=== PATIENT | male | born 1955 | race Caucasian/White ===

== ENCOUNTER 2019-05-23 09:00 | Day surgery (SDC) | payer BC ==
[2019-05-15 12:25] LABS: PRE OP PROTIME 10.3 SECONDS (9.0-12.0)
[2019-05-15 12:26] LABS: BASOPHILS # (AUTO) 0.1 X10'3 (0-0.2); BASOPHILS % (AUTO) 1.4 % (0-1); EOSINOPHILS # (AUTO) 0.5 X10'3 (0-0.9); EOSINOPHILS % (AUTO) 7.5 % (0-6); LYMPHOCYTES # (AUTO) 1.5 X10'3 (1.1-4.8); LYMPHOCYTES % (AUTO) 23.4 % (21-51); MEAN CORPUSCULAR HEMOGLOBIN 29.5 PG (27.0-31.0); MEAN CORPUSCULAR HGB CONC 34.4 g/dL (33.0-36.5); MEAN CORPUSCULAR VOLUME 85.7 FL (78-98); MEAN PLATELET VOLUME 8.8 FL (7.4-10.4); MONOCYTES # (AUTO) 0.5 X10'3 (0-0.9); MONOCYTES % (AUTO) 7.6 % (2-12); NEUTROPHILS # (AUTO) 3.7 X10'3 (1.8-7.7); NEUTROPHILS % (AUTO) 60.1 % (42-75); PRE OP HEMOGLOBIN 15.5 g/dL (14.0-17.9); PRE OP PLATELET COUNT 184 X10'3 (140-440); RED BLOOD COUNT 5.25 X10'6 (4.70-6.10); RED CELL DISTRIBUTION WIDTH 13.5 % (11.5-14.5)
[2019-05-15 12:28] LABS: ALBUMIN/GLOBULIN RATIO 1.2 (1.1-1.5); ALKALINE PHOSPHATASE 78 IU/L (46-116); BLOOD UREA NITROGEN 13 MG/DL (7-18); BUN/CREATININE RATIO 18.1 (5.4-32.0); CHLORIDE 109 MMOL/L (99-107); CREATININE 0.72 MG/DL (0.60-1.10); PRE OP ALT 29 U/L (30-65); PRE OP ANION GAP 6 (8-16); PRE OP AST 9 U/L (10-37); PRE OP BILIRUB, TOTAL 0.6 MG/DL (0.0-1.0); PRE OP GLUCOSE 90 MG/DL (70-104); PRE OP SODIUM 141 MMOL/L (135-145); TOTAL CARBON DIOXIDE 26.3 MMOL/L (24-32); TOTAL PROTEIN 7.3 G/DL (6.4-8.2); eGFR > 90 ML/MIN
[~2019-05-23] VITALS: Ht 182.9 cm; Wt 103.4 kg
[~2019-05-23 09:00] MED LIST: AMLO10TA PO; FLO0.4C PO; IBUPROFEN PO; acetaminophen 325mg tablet PO ONE; cefazolin/dext.iso 2gm/100 ML IV ONE; famotidine 20mg tablet PO ONE; gabapentin 300mg capsule PO ONE; metoclopramide 5 mg/ml inj IV ONE; oxyCODONE SR 10mg (sust. release) tab -2 tabs (20mg) PO ONE; ringers solution, lacted 1,000 ML IV SCH; tranexamic acid inj. 1,000 MG in normal saline 100 ML IV ONE; vancomycin inj 1,500 MG in normal saline 300ml IV soln IV ONE
[2019-05-23] MEDS ORDERED: LIDOcaine 1% (10mg/ml) 2ml vial ONE (09:01)
[2019-05-23] MEDS ORDERED: proCHLORperazine 10 MG/2 ml inj IV PRN (10:00)
[2019-05-23] MEDS ORDERED: meperidine/PF 25mg/ml syringe IV PRN ×3 (10:00)
[2019-05-23] MEDS ORDERED: ondansetron/PF 4mg/2ml inj IV PRN (10:00)
[2019-05-23] MEDS ORDERED: morphine 4 MG/ML inj SYRINge IV PRN ×2 (10:00)
[2019-05-23] MEDS ORDERED: ringers solution, lacted 1,000 ML IV SCH (10:00)
--- NOTE | 2019-05-23 10:00 | NUR ---
PT WAS DISCHARGED TO HOME. SURGERY CANCELLED PER DR AGUILAR FOR MULTIPLE SMALL SCABS TO RIGHT KNEE WHICH IS THE OPERATIVE KNEE. PT WILL CALL OFFICE TO RESCHEDULE AND STATES UNDERSTANDING REGARDING KEEPING SKIN INTACT PRIOR TO SURGERY. 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
[2019-06-19] MEDS ORDERED: IBUP-1984 PO (11:37)
== END 2019-05-23 10:00 | disposition home or self-care (01) ==
LOC: PAS 09:00 → EDSTATUS 10:00 → PAS 10:00 → UNDODISIN 05-25 10:00
PROVIDERS: ATTEND Orthopaedic Surgery
DX: M17.11 Unilateral primary osteoarthritis, right knee (principal); Z53.8 Procedure and treatment not carried out for other reasons; M20.011 Mallet finger of right finger(s); I10 Essential (primary) hypertension; Z87.891 Personal history of nicotine dependence; G47.30 Sleep apnea, unspecified; Z88.8 Allergy status to other drugs, medicaments and biological substances; N40.0 Benign prostatic hyperplasia without lower urinary tract symptoms; Z79.899 Other long term (current) drug therapy; Z79.01 Long term (current) use of anticoagulants
CPT/HCPCS: 36415; 80053; 85025; 85610; 85730; 87081; 93005; J2001; J2765; G0378; J3370; J7120

== ENCOUNTER 2019-06-20 05:34 | Inpatient (IN) | payer BC ==
[2019-06-12 14:27] LABS: BASOPHILS # (AUTO) 0.1 X10'3 (0-0.2); BASOPHILS % (AUTO) 0.9 % (0-1); EOSINOPHILS # (AUTO) 0.6 X10'3 (0-0.9); EOSINOPHILS % (AUTO) 8.8 % (0-6); LYMPHOCYTES # (AUTO) 1.4 X10'3 (1.1-4.8); LYMPHOCYTES % (AUTO) 22.1 % (21-51); MEAN CORPUSCULAR HEMOGLOBIN 29.8 PG (27.0-31.0); MEAN CORPUSCULAR HGB CONC 34.5 g/dL (33.0-36.5); MEAN CORPUSCULAR VOLUME 86.4 FL (78-98); MEAN PLATELET VOLUME 8.4 FL (7.4-10.4); MONOCYTES # (AUTO) 0.3 X10'3 (0-0.9); MONOCYTES % (AUTO) 4.4 % (2-12); NEUTROPHILS # (AUTO) 4.2 X10'3 (1.8-7.7); NEUTROPHILS % (AUTO) 63.8 % (42-75); PRE OP HEMATOCRIT 43.7 % (42.0-52.0); PRE OP HEMOGLOBIN 15.1 g/dL (14.0-17.9); PRE OP PLATELET COUNT 192 X10'3 (140-440); RED BLOOD COUNT 5.06 X10'6 (4.70-6.10); RED CELL DISTRIBUTION WIDTH 13.6 % (11.5-14.5)
[2019-06-12 14:39] LABS: ALBUMIN 3.8 G/DL (3.4-5.0); ALBUMIN/GLOBULIN RATIO 1.2 (1.1-1.5); ALKALINE PHOSPHATASE 78 IU/L (46-116); BLOOD UREA NITROGEN 15 MG/DL (7-18); BUN/CREATININE RATIO 16.9 (5.4-32.0); CALCIUM 8.5 MG/DL (8.5-10.1); CHLORIDE 110 MMOL/L (99-107); CREATININE 0.89 MG/DL (0.60-1.10); PRE OP ALT 29 U/L (30-65); PRE OP ANION GAP 7 (8-16); PRE OP AST 16 U/L (10-37); PRE OP BILIRUB, TOTAL 0.5 MG/DL (0.0-1.0); PRE OP GLUCOSE 162 MG/DL (70-104); PRE OP POTASSIUM 3.6 MMOL/L (3.4-5.1); PRE OP SODIUM 143 MMOL/L (135-145); TOTAL CARBON DIOXIDE 26.3 MMOL/L (24-32); TOTAL PROTEIN 7.1 G/DL (6.4-8.2); eGFR 87 ML/MIN
[2019-06-12 15:30] LABS: HEMOGLOBIN A1C 5.3 % (4.5-6.2)
[~2019-06-20] VITALS: Ht 182.9 cm; Wt 105.7 kg
[2019-06-20] VITALS (25 sets, daily range): BP systolic 117–139; BP diastolic 56–82
[~2019-06-20 05:34] MED LIST changes: +IBUP-1984 PO; -IBUPROFEN PO
[2019-06-20] MEDS ORDERED: LIDOcaine 1% (10mg/ml) 2ml vial ONE (05:55)
--- NOTE | 2019-06-20 06:00 | NUR ---
SCD'S ON GURNEY-NOT APPLIED DUE TO BILAT LE SURGERY Addendum: 06/20/19 at 0651 by Isadora Smith RN Amended: Links added.
[2019-06-20] MEDS ORDERED: vancomycin 1,000mg inj ONE (06:39)
[2019-06-20] MEDS ORDERED: ROPIVAcaine 0.5% (5mg/ml) 30ml vial ONE (06:39)
[2019-06-20] MEDS ORDERED: Thrombin (Bovine) 5,000 unit vial TP ONE (06:39)
[2019-06-20] MEDS ORDERED: morphine 10mg/ml inj. ONE (06:39)
[2019-06-20] MEDS ORDERED: ketorolac trometh. 30mg/ml inj. ONE (06:39)
[2019-06-20] MEDS ORDERED: epiNEPHrine 1 mg/ml inj ONE (06:39)
[2019-06-20] MEDS ORDERED: bacitracin 15gm ointment TP ONE (06:42)
[2019-06-20] MEDS ORDERED: MIDAZolam 5mg/5ml vial ONE (07:17)
[2019-06-20] MEDS ORDERED: morphine /PF 1mg/ml 10ml inj. ONE (07:17)
[2019-06-20] MEDS ORDERED: fentaNYL /PF 50mcg/ml 5ml ampule ONE (07:18)
[2019-06-20] MEDS ORDERED: tetracaine 1% (10mg/ml) pres. free inj. ONE (07:21)
[2019-06-20] MEDS ORDERED: calcium chloride 100 MG/1 ML inj IV ONE (08:27)
[2019-06-20] MEDS: ceFAZolin 1000mg inj ONE ×2 (08:43→08:44)
[2019-06-20] MEDS ORDERED: ringers solution, lacted 1,000 ML IV SCH (09:38)
[2019-06-20] MEDS ORDERED: naloxone 2mg/2ml inj 2 MG in normal saline 500ml IV soln 500 ML IV PRN (09:38)
[2019-06-20] MEDS ORDERED: diphenhydrAMINE 50 mg/ml inj IV PRN (09:40)
[2019-06-20] MEDS ORDERED: ondansetron/PF 4mg/2ml inj IV PRN ×3 (09:40→11:50)
[2019-06-20] MEDS ORDERED: morphine 4 MG/ML inj SYRINge IV PRN ×2 (09:40)
[2019-06-20] MEDS ORDERED: meperidine/PF 25mg/ml syringe IV PRN ×3 (09:40)
[2019-06-20] MEDS ORDERED: proCHLORperazine 10 MG/2 ml inj IV PRN (09:40)
[2019-06-20] MEDS ORDERED: BUPIVAcaine/PF 2.5mg/ml (0.25%) 10ml vial ONE (10:09)
[2019-06-20] MEDS ORDERED: oxyCODONE IR 5mg (immed. release) tablet PO PRN (11:50)
[2019-06-20] MEDS ORDERED: HYDROmorphone 1 mg/ml syringe IV PRN (11:50)
[2019-06-20] MEDS ORDERED: HYDROmorphone inj. 0.5 MG/0.5 ML DISP.SYRIN IV PRN (11:50)
[2019-06-20] MEDS ORDERED: acetaminophen 325mg tablet PO PRN (11:50)
[2019-06-20] MEDS ORDERED: diphenhydrAMINE 25mg capsule PO PRN ×2 (11:50)
[2019-06-20] MEDS ORDERED: magnesium hydroxide 30ml (MOM) UD suspension PO PRN (11:50)
[2019-06-20] MEDS ORDERED: bisacodyl 10mg suppository rectal RC PRN (11:50)
--- NOTE | 2019-06-20 11:58 | NUR ---
Received from OR via BED, accompanied by Anesthesiologist DR BRUNER and report given by Anesthesiologist. PT DROWSY, DENIES PAIN, RIGHT KNEE W/DRSG, LEG WRAP, ICE PACK, HAY DRAIN W/GREEN LIGHT ILLUMINATION, CDI. GEORGE CATHETER TO GRAVITY DRAINAGE W/YELLOW URINE IN DRAINAGE BAG. LEFT FOOT W/GAUZE DRSG W/TUNG WRAP COVERING IN FLAT SOLED BOOT W/SMALL AMT OF BLOODY DRAINAGE ON DRSG, MID TOE AREA. Addendum: 06/20/19 at 1231 by Susi Fowler RN Amended: Links added. Addendum: 06/20/19 at 1233 by Susi Fowler RN LATE NOTE, DERMATOME LEVEL IS L-1 L-2.
[2019-06-20] MEDS: ROPIVAcaine 0.2%/PF PAIN PUMP 550 ML IJ SCH (12:09)
--- NOTE | 2019-06-20 13:26 | NUR ---
I have received patient report from Susi BUSTAMANTE in recovery
--- NOTE | 2019-06-20 13:48 | NUR ---
Report called to receiving nurse. Transferred via BED, 1 BAG OF PERSONAL Belongings, CPAP AND GLASSES SENT W/PT TO ROOM 4011B, RELIEF RN NOTIFIED OF PTS ARRIVAL, PRESENT. Special Issues communicated to receiving nurse. YES. Addendum: 06/20/19 at 1429 by Susi Fowler RN Amended: Links added.
[2019-06-20] MEDS: gabapentin 300mg capsule PO SCH ×2 (14:25→21:39)
[2019-06-20] MEDS: acetaminophen 325mg tablet PO SCH ×2 (14:26→21:40)
[2019-06-20] MEDS: potassium cl 20mEq in 1/2 NS 1,000 ML IV SCH (14:27)
[2019-06-20] MEDS ORDERED: tranexamic acid inj. 1,000 MG in normal saline 100ml IV soln 100 ML IV ONE (15:00)
[2019-06-20] MEDS: ceFAZolin 1GM/D5W- ADD-VANTAGE 50 ML IV SCH (15:49)
--- NOTE | 2019-06-20 17:40 | NUR ---
Student documentation: I have reviewed and agree with all interventions, assessments performed and documented by Malina Maldonado.
--- NOTE | 2019-06-20 18:13 | NUR ---
Patient report given to Karolyn BUSTAMANTE
[2019-06-20] MEDS: oxyCODONE IR 5mg (immed. release) tablet PO PRN (19:44)
[2019-06-20] MEDS ORDERED: vancomycin/NS 1 GM ADD-VANTAGE 250 ML IV SCH (20:00)
[2019-06-20] MEDS: sennosides 8.6mg tablet PO SCH (21:40)
[2019-06-21] VITALS (7 sets, daily range): BP systolic 115–138; BP diastolic 57–74
[2019-06-21] MEDS: ceFAZolin 1GM/D5W- ADD-VANTAGE 50 ML IV SCH (00:38)
[2019-06-21] MEDS: potassium cl 20mEq in 1/2 NS 1,000 ML IV SCH ×3 (00:38→09:17)
[2019-06-21] MEDS: oxyCODONE IR 5mg (immed. release) tablet PO PRN ×5 (00:47→19:01)
[2019-06-21] MEDS: acetaminophen 325mg tablet PO SCH ×4 (02:00→20:19)
--- NOTE | 2019-06-21 06:10 | NUR ---
Patient in room ORTH[facility] 4011. I have received report from AISHWARYA BUSTAMANTE and had the opportunity to ask questions and assume patient care.
[2019-06-21 06:16] LABS: BASOPHILS # (AUTO) 0.1 X10'3 (0-0.2); BASOPHILS % (AUTO) 0.7 % (0-1); EOSINOPHILS # (AUTO) 0.2 X10'3 (0-0.9); EOSINOPHILS % (AUTO) 2.5 % (0-6); HEMATOCRIT 39.1 % (42.0-52.0); HEMOGLOBIN 13.6 g/dl (14.0-17.9); LYMPHOCYTES # (AUTO) 0.9 X10'3 (1.1-4.8); MEAN CORPUSCULAR HEMOGLOBIN 30.1 PG (27.0-31.0); MEAN CORPUSCULAR HGB CONC 34.7 g/dL (33.0-36.5); MEAN CORPUSCULAR VOLUME 86.7 FL (78-98); MEAN PLATELET VOLUME 8.7 FL (7.4-10.4); MONOCYTES # (AUTO) 0.6 X10'3 (0-0.9); MONOCYTES % (AUTO) 6.7 % (2-12); NEUTROPHILS # (AUTO) 7.3 X10'3 (1.8-7.7); NEUTROPHILS % (AUTO) 80.1 % (42-75); PLATELET COUNT 133 X10'3 (140-440); RED BLOOD COUNT 4.52 X10'6 (4.70-6.10); RED CELL DISTRIBUTION WIDTH 13.4 % (11.5-14.5); WHITE BLOOD COUNT 9.2 X10'3 (4.5-11.0)
--- NOTE | 2019-06-21 06:30 | NUR ---
during chart review Demeral was not reassessed from yesterday
--- NOTE | 2019-06-21 06:47 | NUR ---
Patient in room [facility]TH[facility] 4011. I have received report from Radha BUSTAMANTE and had the opportunity to ask questions and assume patient care.
[2019-06-21] MEDS: enoxaparin 40mg/0.4ml syringe SQ SCH (07:28)
[2019-06-21] MEDS: tamsulosin 0.4mg capsule PO SCH (07:29)
[2019-06-21] MEDS: gabapentin 300mg capsule PO SCH ×3 (07:29→20:19)
[2019-06-21] MEDS: amLODIPine 5mg tablet PO SCH (07:30)
--- NOTE | 2019-06-21 09:27 | NUR ---
DC conteh catheter. Pt tolerated well. educated on urinal and using bathroom much as possible.
--- NOTE | 2019-06-21 10:00 | NUR ---
Pt drinking plenty of water and using the bathroom to urinate frequently. Discontinued IV fluids
--- NOTE | 2019-06-21 14:00 | NUR ---
turned patients on-Q pump to 8 from 6. Pt was a 05/26 after PT
--- NOTE | 2019-06-21 17:59 | NUR ---
I AGREE WITH MY PRECEPTEE SARAH BUSTAMANTE'S CHARTING.
--- NOTE | 2019-06-21 18:14 | NUR ---
Problems reprioritized. Patient report given, questions answered & plan of care reviewed with Lucrecia RN.
--- NOTE | 2019-06-21 18:15 | NUR ---
Received report from Ken BUSTAMANTE. Assumed care of patient.
[2019-06-21] MEDS: sennosides 8.6mg tablet PO SCH (20:18)
[2019-06-21] MEDS: celeCOXIB 100mg capsule PO SCH (20:19)
[2019-06-22] MEDS: acetaminophen 325mg tablet PO SCH ×2 (01:40→07:33)
[2019-06-22 06:00] VITALS: BP 129/70
--- NOTE | 2019-06-22 06:03 | NUR ---
Patient in room ORTH[facility] 4011. I have received report from RADHA BUSTAMANTE and had the opportunity to ask questions and assume patient care.
--- NOTE | 2019-06-22 06:10 | NUR ---
Gave report to Ken BUSTAMANTE.
--- NOTE | 2019-06-22 06:25 | NUR ---
Patient in room ORTH[facility] 4011. I have received report from Lucrecia BUSTAMANTE and had the opportunity to ask questions and assume patient care.
[2019-06-22 06:37] LABS: BASOPHILS % (AUTO) 0.3 % (0-1); EOSINOPHILS # (AUTO) 0.8 X10'3 (0-0.9); EOSINOPHILS % (AUTO) 8.6 % (0-6); HEMATOCRIT 37.3 % (42.0-52.0); HEMOGLOBIN 12.8 g/dl (14.0-17.9); LYMPHOCYTES # (AUTO) 1.2 X10'3 (1.1-4.8); LYMPHOCYTES % (AUTO) 13.9 % (21-51); MEAN CORPUSCULAR HEMOGLOBIN 29.8 PG (27.0-31.0); MEAN CORPUSCULAR HGB CONC 34.3 g/dL (33.0-36.5); MEAN CORPUSCULAR VOLUME 86.9 FL (78-98); MONOCYTES # (AUTO) 0.9 X10'3 (0-0.9); MONOCYTES % (AUTO) 9.9 % (2-12); NEUTROPHILS # (AUTO) 5.9 X10'3 (1.8-7.7); NEUTROPHILS % (AUTO) 67.3 % (42-75); PLATELET COUNT 127 X10'3 (140-440); RED CELL DISTRIBUTION WIDTH 13.5 % (11.5-14.5); WHITE BLOOD COUNT 8.8 X10'3 (4.5-11.0)
[2019-06-22] MEDS: tamsulosin 0.4mg capsule PO SCH (07:34)
[2019-06-22] MEDS: enoxaparin 40mg/0.4ml syringe SQ SCH (07:34)
[2019-06-22] MEDS: gabapentin 300mg capsule PO SCH (07:34)
[2019-06-22] MEDS: celeCOXIB 100mg capsule PO SCH (07:34)
[2019-06-22] MEDS: amLODIPine 5mg tablet PO SCH (07:35)
[2019-06-22] MEDS: ROPIVAcaine 0.2%/PF PAIN PUMP 550 ML IJ SCH (09:38)
[2019-06-22 10:00] VITALS: BP 127/67
[2019-06-22] MEDS: oxyCODONE IR 5mg (immed. release) tablet PO PRN (10:16)
[2019-06-22] MEDS ORDERED: acetaminophen 325mg tablet PO PRN (11:50)
--- NOTE | 2019-06-22 12:00 | NUR ---
PATIENT DC SAFELY WITH FAMILY. ALL BELONGINGS IN POSSESSION. PATIENT VERBALIZES UNDERSTANDING OF DC INSTRUCTIONS. PATIENT WILL HAVE HOME HEALTH.
--- NOTE | 2019-06-22 12:00 | NUR ---
I AGREE WITH MY PRECEPTEE SARAH BUSTAMANTE'S CHARTING.
== END 2019-06-22 12:00 | disposition home health service (06) | DRG 470 ==
LOC: PAS IN 05:34 → EDSTATUS 07:30 → ORTHO 4S 13:50
PROVIDERS: ADMIT Orthopaedic Surgery; ATTEND Orthopaedic Surgery
PROC: 0SS Lower Joints, Reposition (ICD-10-PCS; 2019-06-20)
PROC: 3E0T3BZ Introduction of Anesthetic Agent into Peripheral Nerves and Plexi, Percutaneous Approach (ICD-10-PCS; 2019-06-20)
PROC: 0SRD069 Replacement of Left Knee Joint with Oxidized Zirconium on Polyethylene Synthetic Substitute, Cemented, Open Approach (ICD-10-PCS; principal; 2019-06-20 07:50)
PROC: 5A09357 Assistance with Respiratory Ventilation, Less than 24 Consecutive Hours, Continuous Positive Airway Pressure (ICD-10-PCS; 2019-06-22)
DX: M17.11 Unilateral primary osteoarthritis, right knee (principal); D62 Acute posthemorrhagic anemia; M20.42 Other hammer toe(s) (acquired), left foot; N40.0 Benign prostatic hyperplasia without lower urinary tract symptoms; I10 Essential (primary) hypertension; G47.33 Obstructive sleep apnea (adult) (pediatric); Z87.891 Personal history of nicotine dependence; Z88.8 Allergy status to other drugs, medicaments and biological substances; Z90.49 Acquired absence of other specified parts of digestive tract; Z79.899 Other long term (current) drug therapy
CPT/HCPCS: Z7506; Z7508; 36415; 80053; 82948; 83036; 85025; 87081; 97110; 97116; 97162; 97530; A4215; A4618; A6446; A6449; A6454; A7000; C1713; C1758; C1776; G0378; J0171; J0690; J1170; J1650; J1885; J2001; J2175; J2250; J2270; J2310; J2765; J2795; J3010; J3370; J3480; J3490; J7030; J7040; J7120; L3260; Q0163